=== PATIENT | male | born 1960 | race Caucasian/White ===

== ENCOUNTER 2017-05-16 13:04 | Inpatient (IN) ==
--- NOTE | 2017-05-16 14:24 | Diag Imaging Result Doc PS360 ---
EXAM: CHEST-2 VIEWS INDICATION: Fever TECHNIQUE: 2 views COMPARISON: None. FINDINGS: There is mild subsegmental atelectasis at the right lung base. The lungs are grossly clear, otherwise. There is no discrete pleural fluid collection or pneumothorax. The cardiomediastinal silhouette and central vasculature are grossly unremarkable. IMPRESSION: Mild right basilar subsegmental atelectasis. Grossly unremarkable, otherwise. Electronically signed by Lasha Valdez 05/16/2017 2:22 PM
[2017-05-16] MEDS ORDERED: TYLENOL PO ONE (15:02)
[2017-05-16 15:18] LABS: URINE CULTURE NEEDED? NO; URINE MICRO REVIEW NEEDED? NO; URINE SOURCE CLEAN CATCH
[2017-05-16 15:24] LABS: BASO% 0.1 % (0.0-0.8); EOS# 0.03 X1000 (0.0-0.7); EOS% 0.2 % (0.0-10.0); HEMATOCRIT 44.5 % (42.0-52.0); HEMOGLOBIN 16.1 g/dL (14.0-18.0); IMM GRAN# 0.03 X1000 (0.0-0.04); IMM GRAN% 0.2 % (0.0-0.5); LYMPH# 0.47 X1000 (1.2-3.4); LYMPH% 3.6 % (20.5-51.1); MANUAL DIFF NEEDED? YES; MCH 30.7 PG (27-31); MCHC 36.2 g/dL (33-37); MCV 84.8 FL (81-99); MONO# 0.67 X1000 (0.11-0.59); MONO% 5.1 % (1.7-9.3); MPV 10.9 FL (7.4-10.4); NEUT% 90.8 % (42.2-75.2); PLT 184 X1000 (130-400); RBC 5.25 XMIL (4.7-6.1)
[2017-05-16 15:26] LABS: BILIRUBIN URINE SMALL (NEGATIVE); BLOOD URINE TRACE (NEGATIVE); COLOR YELLOW; GLUCOSE URINE NEGATIVE (NEGATIVE); LEUKOCYTES URINE NEGATIVE (NEGATIVE); NITRITE URINE NEGATIVE (NEGATIVE); PROTEIN URINE 50 mg/dL (NEGATIVE); SP GRAVITY URINE 1.032; TURBIDITY URINE CLEAR (CLEAR); UROBILINOGEN URINE 2 mg/dL (NORMAL)
[2017-05-16 15:28] LABS: UR EPITHELIAL CELLS <10 /HPF (<10); URINE BACTERIA NEGATIVE /HPF; URINE RBC <10 /HPF (<10); URINE WBC <10 /HPF (<10)
[2017-05-16 15:31] LABS: INR 1.06; PROTIME 11.2 Seconds (9.2-11.7); PTT 28.9 Seconds (22.0-36.0)
[2017-05-16 15:37] LABS: AGAP 13; ALBUMIN 4.1 g/dL (3.5-5.0); ALKALINE PHOSPHATASE 83 U/L (32-122); BUN 18 mg/dL (8-22); CALCIUM 9.3 mg/dL (8.8-10.2); CHLORIDE 96 mmol/L (98-107); CK PROFILE 116 U/L (24-204); COSMO 276; GOT 17 U/L (10-34); GPT 17 U/L (10-44); POTASSIUM 3.6 mmol/L (3.5-5.1); SODIUM 137 mmol/L (136-145); TCO2 28 mmol/L (25-35); TOTAL PROTEIN 7.3 g/dL (6.3-8.3)
[2017-05-16 16:26] LABS: BANDS 1 % (0-1); LYMPHS 5 % (21-51); MONO 2 % (1-9)
[2017-05-16] MEDS ORDERED: NS 1,000 ML IV ONE (16:57)
--- NOTE | 2017-05-16 18:00 | PROVIDER DOCUMENTATION ---
This chart was entered by Robb Alegria Scribe, acting as scribe for Yenni Harrell CRNP. HPI-Abdominal Pain/GI Problem - General Source: patient - History of Present Illness-ABD Nature of Presenting Problems: Patient is a 56 y/o M that presents with lower abdominal pain x 4 days with fever/chills, n/v. Denies dysuria, diarrhea, or cough. reports having some constipation. Abdominal Pain Onset Location: reports: RLQ, LLQ, suprapubic Pain Radiation: reports: no radiation Quality of Pain: reports: aching, cramping Severity in ED: reports: moderate Onset/Duration: reports: abrupt, 4 days ago Timing: reports: still present, constant Activities at Onset: reports: none Modifying Factors: improves with: nothing Associated Symptoms: reports: constipation, fever/chills, nausea, vomiting. denies: back/neck pain, chest pain, cough, diarrhea, shortness of breath Similar Symptoms Previously?: No Recently seen or treated by another doctor?: No <Yenni Harrell - Last Filed: 05/16/17 18:00> <Lasha Granados - Last Filed: 05/16/17 19:47> - General Chief Complaint: Abdominal Pain Stated Complaint: ABD PAIN/FEVER Time Seen by Provider: 05/16/17 14:02 Allergies/Adverse Reactions: Patient Allergies Allergy/AdvReac Type Severity Reaction Status Date / Time No Known Allergies Allergy Verified 05/16/17 17:43 Home Medications: Home Medication List Medication Instructions Recorded Confirmed Last Taken Type Esomeprazole Magnesium [Nexium] 20 mg PO DAILY 05/16/17 05/16/17 05/11/17 09:00 History Review of Systems - Adult - REVIEW OF SYSTEMS - ADULT Constitutional: reports: chills, fever Eyes: reports: no symptoms reported Ears, Nose, Mouth & Throat: denies: ear discharge, ear pain, sinus problem, throat pain Cardiovascular: denies: chest pain, orthopnea, palpitations Respiratory: denies: cough, shortness of breath, wheezing Gastrointestinal: reports: abdominal pain, constipation, nausea, vomiting. denies: diarrhea, rectal bleeding Genitourinary: denies: dysuria, frequency, hematuria, urgency Musculoskeletal: reports: no symptoms reported Integumentary: reports: no symptoms reported Neurological: reports: no symptoms reported Psychiatric: reports: no symptoms reported Endocrine: reports: no symptoms reported Hematologic/Lymphatic: reports: no symptoms reported Allergic/Immunologic: reports: no symptoms reported All Other Systems: Reviewed and Negative <Yenni Harrell - Last Filed: 05/16/17 18:00> - REVIEW OF SYSTEMS - ADULT Constitutional: reports: chills, fever <Lasha Granados - Last Filed: 05/16/17 19:47> Past History - Adult - PAST MEDICAL HISTORY-ADULT Review of Records: reports: Old Records Reviewed, Nursing Assessment Review, Medications Reviewed <Yenni Harrell - Last Filed: 05/16/17 18:00> - PAST MEDICAL HISTORY-ADULT Review of Records: reports: Old Records Reviewed <Lasha Granados - Last Filed: 05/16/17 19:47> Physical Exam-General - PHYSICAL EXAM-ADULT Initial Vital Signs Reviewed: Yes - CONSTITUTIONAL General Appearance: alert, mild distress - EYES Eyes: PERRL/EOMI, pink conjunctivae - HEAD, EARS, NOSE, MOUTH & THROAT HENMT: normocephalic/atraumatic, moist mucous membranes, normal ENT inspection - NECK Neck: full range of motion, normal inspection - RESPIRATORY Respiratory: lungs clear, normal breath sounds, no respiratory distress, no accessory muscle use - CARDIOVASCULAR Cardiovascular: no gallop, no murmur, tachycardia - GASTROINTESTINAL (ABDOMEN) Abdominal Exam: soft, no organomegaly, no pulsatile mass, abnormal bowel sounds (decreased on right, absent on left), tenderness (LLQ). negative: hepatomegaly , spleenomegaly - MUSCULOSKELETAL Back Exam: no CVA tenderness, no vertebral tenderness Extremity: normal range of motion, normal inspection, no pedal edema - SKIN Integumentary: normal color, warm/dry - NEUROLOGIC Neurologic: abe teacher II-XII nml as tested, no motor/sensory deficits - PSYCHIATRIC Psych/Mental Status: normal mood/affect, normal thought content, normal thought process, oriented x 3 <Yenni Harrell - Last Filed: 05/16/17 18:00> - CONSTITUTIONAL General Appearance: alert, mild distress <Lasha Granados - Last Filed: 05/16/17 19:47> Progress - PLAN OF CARE/RESULTS Progress/Plan/Lab Results: Vital Signs - 8 hr 05/16/17 13:23 Temperature 102.8 F H Pulse Rate 120 H Respiratory Rate 20 Blood Pressure 156/103 O2 Sat by Pulse Oximetry 99 Orders Category Date Time Status Cardiac Monitoring DIRECTED Care 05/16/17 14:03 Active IV Insertion ORDERED Care 05/16/17 14:03 Active Notify MD of + Sepsis Screen NOW Care 05/16/17 14:03 Active CHEST-2 VIEWS [RAD] Stat Exams 05/16/17 14:03 Completed BLOOD CULTURE [BLDCUL] Stat Lab 05/16/17 14:03 Uncollected CBC WITH DIFF [HEME] Stat Lab 05/16/17 14:03 Uncollected CK PROFILE [SP CHEM] Stat Lab 05/16/17 14:03 Uncollected COMPREHENSIVE METABOLIC PANEL [CHEM] Stat Lab 05/16/17 14:03 Uncollected LACTATE, PLASMA [CHEM] Stat Lab 05/16/17 14:03 Uncollected PROTIME WITH INR [COAG] Stat Lab 05/16/17 14:03 Uncollected PTT [COAG] Stat Lab 05/16/17 14:03 Uncollected TROPONIN T Stat Lab 05/16/17 14:03 Uncollected URINALYSIS W/POSS RFLX CULT-1 [URINALYSIS] Stat Lab 05/16/17 14:02 Uncollected Oxygen Device Stat Oth 05/16/17 14:03 Active Result Diagrams: 05/16/17 15:08 05/16/17 15:08 - CHANGE OF SHIFT REPORT (ED Provider) Report Given and Care Transferred to:: Lasha Granados PA-C Time of Transfer: 18:00 Items Pending: CT/MRI Results <Yenni Harrell - Last Filed: 05/16/17 18:00> - PLAN OF CARE/RESULTS Progress/Plan/Lab Results: Vital Signs - 8 hr 05/16/17 13:23 05/16/17 15:19 05/16/17 17:44 Temperature 102.8 F H 100.1 F H 99.6 F Pulse Rate 120 H 119 H 112 H Respiratory Rate 20 20 30 H Blood Pressure 156/103 125/87 135/88 O2 Sat by Pulse Oximetry 99 96 97 05/16/17 18:42 Temperature Pulse Rate 108 H Respiratory Rate 24 Blood Pressure 141/97 O2 Sat by Pulse Oximetry 99 Laboratory Results - last 24 hr 05/16/17 05/16/17 05/16/17 15:05 15:08 15:08 WBC 13.15 H RBC 5.25 Hgb 16.1 Hct 44.5 MCV 84.8 MCH 30.7 MCHC 36.2 RDW Std Deviation 12.8 Plt Count 184 MPV 10.9 H Immature Gran % (Auto) 0.2 Neut % (Auto) 90.8 H Lymph % (Auto) 3.6 L [place] % (Auto) 5.1 Eos % (Auto) 0.2 Baso % (Auto) 0.1 Immature Gran # (Auto) 0.03 Neut # (Auto) 11.94 H Lymph # (Auto) 0.47 L [place] # (Auto) 0.67 H Eos # (Auto) 0.03 Baso # (Auto) 0.01 Segmented Neutrophils 92 H Band Neutrophils 1 Lymphocytes 5 L Monocytes 2 PT INR PTT (Actin FS) Sodium 137 Potassium 3.6 Chloride 96 L Carbon Dioxide 28 Anion Gap 13 BUN 18 Creatinine 1.2 Estimated GFR/1.73 m2 > 60 BUN/Creatinine Ratio 15 Glucose 101 Calculated Osmolality 276 Calcium 9.3 Total Bilirubin 2.00 H AST 17 ALT 17 Alkaline Phosphatase 83 Creatine Kinase 116 Troponin T Total Protein 7.3 Albumin 4.1 Globulin 3.2 Albumin/Globulin Ratio 1.3 Plasma Lactate Urine Source CLEAN CATCH Urine Color YELLOW Urine Turbidity CLEAR Urine pH 6.0 Ur Specific [place] 1.032 Urine Protein 50 A Ur Glucose (Stick) NEGATIVE Ur Ketones (Stick) 10 A Urine Blood TRACE A Urine Nitrite NEGATIVE Urine Bilirubin SMALL A Urobilinogen Dipstick 2 A Urine Leukocytes NEGATIVE Urine WBC (Auto) <10 Urine RBC (Auto) <10 U Epithel Cells (Auto) <10 Urine Bacteria (Auto) NEGATIVE 05/16/17 05/16/17 05/16/17 15:08 15:08 15:08 WBC RBC Hgb Hct MCV MCH MCHC RDW Std Deviation Plt Count MPV Immature Gran % (Auto) Neut % (Auto) Lymph % (Auto) [place] % (Auto) Eos % (Auto) Baso % (Auto) Immature Gran # (Auto) Neut # (Auto) Lymph # (Auto) [place] # (Auto) Eos # (Auto) Baso # (Auto) Segmented Neutrophils Band Neutrophils Lymphocytes Monocytes PT 11.2 INR 1.06 PTT (Actin FS) 28.9 Sodium Potassium Chloride Carbon Dioxide Anion Gap BUN Creatinine Estimated GFR/1.73 m2 BUN/Creatinine Ratio Glucose Calculated Osmolality Calcium Total Bilirubin AST ALT Alkaline Phosphatase Creatine Kinase Troponin T < 0.010 Total Protein Albumin Globulin Albumin/Globulin Ratio Plasma Lactate 1.3 Urine Source Urine Color Urine Turbidity Urine pH Ur Specific [place] Urine Protein Ur Glucose (Stick) Ur Ketones (Stick) Urine Blood Urine Nitrite Urine Bilirubin Urobilinogen Dipstick Urine Leukocytes Urine WBC (Auto) Urine RBC (Auto) U Epithel Cells (Auto) Urine Bacteria (Auto) Orders Category Date Time Status Cardiac Monitoring DIRECTED Care 05/16/17 14:03 Active IV Insertion ORDERED Care 05/16/17 14:03 Completed Notify MD of + Sepsis Screen NOW Care 05/16/17 14:03 Active CHEST-2 VIEWS [RAD] Stat Exams 05/16/17 14:[address] ABD/PELVIS W/ IV CONT ONLY [CT] Stat Exams 05/16/17 15:44 Completed BLOOD CULTURE [BLDCUL] Stat Lab 05/16/17 16:40 Results CBC WITH DIFF [HEME] Stat Lab 05/16/17 15:08 Completed CK PROFILE [SP CHEM] Stat Lab 05/16/17 15:08 Completed COMPREHENSIVE METABOLIC PANEL [CHEM] Stat Lab 05/16/17 15:08 Completed LACTATE, PLASMA [CHEM] Stat Lab 05/16/17 15:08 Completed PROTIME WITH INR [COAG] Stat Lab 05/16/17 15:08 Completed PTT [COAG] Stat Lab 05/16/17 15:08 Completed TROPONIN T Stat Lab 05/16/17 15:08 Completed URINALYSIS W/POSS RFLX CULT-1 [URINALYSIS] Stat Lab 05/16/17 15:05 Completed 0.9% Sodium Chloride Inj [Ns] 1,000 ml Med 05/16/17 16:57 Discontinued IV 999 mls/hr Acetaminophen [Tylenol] Med 05/16/17 15:02 Discontinued 1,000 mg PO NOW ONE Oxygen Device Stat Oth 05/16/17 14:03 Completed Result Diagrams: 05/16/17 15:08 05/16/17 15:08 - CT/MRI 1 CT Study: Abdomen, Pelvis Impression: Abnormal (acute cholecystitis - radiology) - CONSULTS/PCP/HOSPITALIST Notification #1 *Consult/PCP/Hospitalist*: Dr. Rogers (General Surgery) Time Discussed: 19:36 Reason/Comments: Will see pt in the ER. Please consult hospitalist. #2 Consult: Dr. Simmons (Hospitalist) Time Discussed: 19:47 Reason/Comments: Will admit the pt. BID MANAGER will see pt in the ER and write orders. <Lasha Granados - Last Filed: 05/16/17 19:47> Departure <Yenni Harrell - Last Filed: 05/16/17 18:00> - Departure Date of Disposition Decision: 05/16/17 Time of Disposition Decision: 19:26 Certified Medical Emergency: Emergent - Critical Care Note This patient required my direct & personal management of CC.: No <Lasha Granados - Last Filed: 05/16/17 19:47> - Departure DIAGNOSIS: Acute cholecystitis Disposition: ADMITTED INPATIENT 09 Condition: Stable Referrals and Follow-Ups: None,PCP [Primary Care Provider] - Attestation - Physician/ ANA Attestation Patient care was provided by Advanced Practice Provider:: Yes Advanced Practice Provider:: Yenni Harrell Advanced Practice Provider documentation review:: The Mid-level provider documentation, treatment plan and medical decision making was reviewed by the physician who agrees with all treatment and medical decision making by the MLP. <Yenni Harrell - Last Filed: 05/16/17 18:00> - Physician/ ANA Attestation The physician spent face to face time with patient:: Yes Advanced Practice Provider documentation review:: Supervising physician onsite and consulted in the evaluation and care of this patient. The physician did have a face to face encounter with the patient. <Lasha Granados - Last Filed: 05/16/17 19:47> This chart was documented by the indicated scribe, (Robb Alegria, Louise) and accurately reflects the services I performed and decisions made by me, Yenni Harrell CRNP, as attested by the provider's signature.
--- NOTE | 2017-05-16 18:29 | Diag Imaging Result Doc PS360 ---
EXAM: CT ABD/PELVIS W/ IV CONT ONLY INDICATION: abd pain TECHNIQUE: Dose reduction protocol was used. COMPARISON: None. FINDINGS: There is a calcified granuloma at the left lung base. There is subsegmental atelectasis versus scarring at the lung bases. There is a large 9 mm calcified stone that is obstructing the cystic duct. The gallbladder is dilated and there is marked gallbladder wall thickening with pericholecystic inflammatory change consistent with acute cholecystitis. There is hepatic steatosis. There are calcified granulomata in the spleen. The adrenal glands and pancreas are unremarkable. The kidneys are unremarkable. The urinary bladder is unremarkable. The appendix is normal. The GI tract is essentially unremarkable, otherwise. IMPRESSION: 1.Calcified gallstone that is obstructing the cystic duct and resulting in acute cholecystitis. 2.Other incidental/nonacute findings detailed above. Electronically signed by Lasha Valdez 05/16/2017 6:27 PM
[2017-05-16] MEDS ORDERED: ZOSYN 3.375 GM in NS 50 ML IV ONE (19:36)
[2017-05-16] MEDS ORDERED: TYLENOL PO PRN (21:15)
[2017-05-16] MEDS ORDERED: DILAUDID IV PRN (21:15)
[2017-05-16] MEDS ORDERED: ZOFRAN IV PRN (21:15)
--- NOTE | 2017-05-16 21:54 | CONSULTATION ---
DATE OF CONSULTATION: 05/16/2017 HISTORY OF PRESENT ILLNESS: This is a 56-year-old male who is not really followed by any physician who says for a week he has had right upper quadrant abdominal pain. This has become quite severe with fevers prompting his admission to the emergency department tonight. Denies any jaundice, but has had some nausea associated these episodes. No real changes in his bowel movements. He says he had a colonoscopy [address] Foss. Unsure of the results. Weight has been stable. He is otherwise in his usual state of health. MEDICAL HISTORY: He has never really seen a doctor, but denies any medical problems. Denies chest pain or shortness of breath with exertion, however. SURGICAL HISTORY: Negative. SOCIAL HISTORY: He uses smokeless tobacco. No alcohol. Works in construction. FAMILY HISTORY: Someone in his family had cancer, but he is unclear what this was. REVIEW OF SYSTEMS: Ten point negative other than what was mentioned in HPI. PHYSICAL EXAMINATION: Vital Signs: Temperature upon arrival to emergency department was 102.8, but he defervesced with a temperature of 98.8 degrees, pulse 111, blood pressure 116/82, oxygen saturation 97% on room air. General: He is alert, in no acute distress. HEENT: There is no scleral icterus or cervical masses. Cardiovascular: Normal rate, regular rhythm. Pulmonary: No increased work of breathing. Abdomen: Soft. Very tender in the right upper quadrant, but no eliot peritonitis. I do not see any hernias or scars on his abdomen. Peripheral vascular: The upper extremities are warm and well perfused. I do not see any lower extremity edema. Musculoskeletal: Normal muscle tone and gross range of motion throughout. Lymphatics: I do not feel any cervical or axillary lymphadenopathy. Psychiatric: Appropriate affect and insight into his current condition. Neurologic: I do not see any focal deficits. LABORATORY/IMAGING: White count 13, hematocrit 44, platelets 184,000. INR is 1.06. Creatinine is 1.2. Bilirubin is elevated at 2. AST, ALT and alkaline phosphatase are normal at 17, 17 and 83. Troponins are normal. Lactate is normal at 1.3. CT scan shows fluid around an edematous, distended gallbladder with a stone in the gallbladder neck consistent with cholelithiasis and cholecystitis. ASSESSMENT AND PLAN: A 56-year-old, white male who presents with acute cholecystitis. Symptoms have been going on for a week. I had a long discussion about the next step. I have recommended admission for IV antibiotics and laparoscopic cholecystectomy with cholangiogram tomorrow. The ER has called a hospitalist. I think this is reasonable given his lack of medical follow-up over the course of his life. He says he has never really seen a doctor since he was a kid. We discussed the risks, benefits, alternatives to surgery, including bleeding, infection, bile leak, damage to the common bile duct or other surrounding structures and the higher than usual likelihood of conversion to open given the dense inflammatory changes seen. I discussed the possibility of leaving a drain and the possibility of having a retained stone, needing ERCP on cholangiogram. He understands all these risks and consents. We will keep him NPO. We will continue him on Zosyn that is being administered currently, and se will plan for laparoscopic cholecystectomy with intraoperative cholangiogram tomorrow. I appreciate the hospitalist service's help with this gentleman in anticipation of an operation tomorrow. We will continue to follow along. cc: Zackary Rogers MD
[2017-05-16] MEDS: NS 1,000 ML IV SCH (22:19)
[2017-05-17] MEDS: ZOSYN 2.25 GM in NS 50 ML IV SCH ×4 (02:26→20:55)
--- NOTE | 2017-05-17 02:35 | HISTORY AND PHYSICAL ---
DATE AND TIME OF HISTORY AND PHYSICAL: 05/16/2017 at 21:00. CHIEF COMPLAINT: Abdominal pain. HISTORY OF PRESENT ILLNESS: Mr. Steven is a 56-year-old male who only has a known past medical history of gastroesophageal reflux disease. Patient at this time does not have a known primary care physician and did report to Dr. Rogers that he has not really ever seen any doctor since he was younger. He states that approximately 1 week ago that he began having abdominal pain. He states that initially it was generalized though did become more localized to his right upper quadrant. The patient states that this pain does radiate to his epigastric area as well. He reports this is a constant pain though does have intermittent periods where it becomes quite severe. He has had intermittent episodes of nausea and vomiting over the past week though he is able to hold some fluids and food down. He also reports that he has had fever and body aches. The patient states that he initially thought that he might be constipated given that he had not had a bowel movement in 3-4 days and took a stool softener and laxative 2 nights ago. He states that since this time he has had 2 loose bowel movements with the last one being this morning but he denies any hematochezia or melena. He also denies any hematemesis. He denies any chest pain, shortness of breath, dysuria, urinary frequency or any swelling in extremities. Upon evaluation in the ER, the patient was found to have mild leukocytosis and had initial vitals of temperature of 102.8 degrees with a heart rate of 120, respirations 20, blood pressure 156/103, and oxygen saturation 99%. Given his symptoms as well as leukocytosis and fever , a CT abdomen and pelvis was performed with IV contrast only which did show a calcified gallstone that is obstructing the cystic duct and resulting in acute cholecystitis. Dr. Rogers with Surgery has been consulted and does plan to take the patient for a laparoscopic cholecystectomy with cholangiogram tomorrow. REVIEW OF SYSTEMS: A 12 point review of systems was conducted with the patient and all were negative except for pertinent positives mentioned in above HPI. PAST MEDICAL HISTORY: Gastroesophageal reflux disease. The patient did report that he has not really ever seen a doctor since he was younger. SURGICAL HISTORY: Patient denies any previous surgery. SOCIAL HISTORY: The patient denies any alcohol or illicit drug use but does report he uses smokeless tobacco. He works in construction. FAMILY HISTORY: His mother has a history of heart disease as well as skin cancer. His father secondary to a hemorrhagic stroke and he did have 1 brother who secondary to lung cancer though was a heavy smoker. ALLERGIES: The patient reports no known allergies. HOME MEDICATIONS: Nexium 20 mg p.o. daily. DIAGNOSTIC DATA/LABORATORY RESULTS: White blood cell count 13.1, hemoglobin 16.1, hematocrit 44.5, platelet count 184,000. PT 11.2, INR 1.06, PTT is 28.9. Sodium 137, potassium 3.6, chloride 99, bicarb 28, BUN 18, creatinine 1.2, glucose 101, calcium 9.3, total bilirubin 2, AST 17, ALT 17, alkaline phosphatase is 83. CK 116, troponin is less than 0.01, plasma lactate is 1.3. Urinalysis obtained via clean catch was positive for protein, ketones, trace blood and small bilirubin. It was negative for nitrites, leukocytes, white blood cells, or bacteria. CT of the abdomen and pelvis with IV contrast only showed calcified gallstone that is obstructing the cystic duct and resulting in acute cholecystitis. There is hepatic steatosis noted as well. There is also a calcified granuloma in the spleen and there was some subsegmental atelectasis versus scarring in the lung bases noted. Chest x-ray showed mild right basilar subsegmental atelectasis. This is per Radiology. PHYSICAL EXAMINATION: VITAL SIGNS: Temperature 99.6 degrees, heart rate 109, respirations 18, blood pressure 132/85, oxygen saturation is 100% room air. GENERAL: Mr. Steven is a pleasant 56-year-old male who is resting comfortably in the inpatient bed. He was in no acute distress. He was awake, alert and able to answer all questions appropriately. HEENT: Head is atraumatic, normocephalic. Pupils are equal, round, reactive to light, are 3 mm bilaterally and brisk. Sclerae white. No lesions noted. Subconjunctivae were pink. Oral mucosa is moist. Oropharynx is clear. NECK: Supple. Trachea midline. No carotid bruits noted upon auscultation bilaterally. CARDIOVASCULAR: Patient has normal S1, S2. No murmurs, gallops, rubs appreciated with a regular rate and rhythm. PULMONARY: Patient has symmetrical chest expansion bilaterally. Lung sounds are clear to auscultation in bilateral full persaud. ABDOMEN: Soft, nondistended though the patient did report tenderness in the right upper quadrant and epigastric area. He did have a positive Higuera's sign noted. Bowel sounds were present in all 4 quadrants, were normoactive. No CVA tenderness noted upon palpation. EXTREMITIES: No cyanosis, clubbing, or edema noted. Pulse, motor and sensory were intact in all extremities as well. Pedal pulses were 3+ bilaterally. INTEGUMENTARY: The patient's skin color is pink, warm, dry, and intact. No lesions or sores noted. NEUROLOGICAL: Patient is alert and oriented x4. Cranial nerves 2-12 are grossly intact. ASSESSMENT AND PLAN: 1. Acute cholecystitis. The patient's CT did show a calcified gallstone that is obstructing the cystic duct and resulting in acute cholecystitis. The patient does have some leukocytosis and fever noted. He has been placed on Zosyn 3.375 g IV q.[address] Rogers with Surgery has been consulted and he does plan to take the patient for a laparoscopic cholecystectomy with cholangiogram tomorrow. He will remain NPO at this time and we will continue to follow and await Dr. Rogers's further evaluation and recommendations for management. 2. Leukocytosis. We will continue with treatment as mentioned for #1. 3. Nausea and vomiting. We will provide Zofran as needed. 4. Gastroesophageal reflux disease. We will placed the patient on Protonix IV q.24 hours. 5. DVT prophylaxis was provided with SCDs. The patient has been placed on the medical floor with telemetry. He will have vital signs q.6 hours. We will do strict intake and output. He will be NPO. We have placed an order for an EKG as well as repeat CBC and CMP in the morning. Also, blood cultures have been placed and we are awaiting those results at this time as well. We will provide IV fluid hydration with normal saline at 100 mL/h. Further orders and recommendations pending hospital course , diagnostic studies, and physician evaluation. Dictated by MICAELA Baer for Da Simmons MD cc: Da Simmons MD [facility] HOSPITALChava
[2017-05-17 06:23] LABS: MANUAL DIFF NEEDED? NO
[2017-05-17 06:38] LABS: BASO% 0.2 % (0.0-0.8); EOS# 0.02 X1000 (0.0-0.7); EOS% 0.2 % (0.0-10.0); HEMATOCRIT 39.8 % (42.0-52.0); HEMOGLOBIN 14.3 g/dL (14.0-18.0); IMM GRAN# 0.03 X1000 (0.0-0.04); IMM GRAN% 0.3 % (0.0-0.5); LYMPH# 1.17 X1000 (1.2-3.4); LYMPH% 10.1 % (20.5-51.1); MCH 30.8 PG (27-31); MCHC 35.9 g/dL (33-37); MCV 85.8 FL (81-99); MONO# 1.36 X1000 (0.11-0.59); MONO% 11.8 % (1.7-9.3); MPV 11.7 FL (7.4-10.4); NEUT% 77.4 % (42.2-75.2); PLT 166 X1000 (130-400); RBC 4.64 XMIL (4.7-6.1)
[2017-05-17] MEDS: SODIUM CHLORIDE 0.9% INJ SCH (06:39)
[2017-05-17] MEDS: PROTONIX IV SCH (06:39)
[2017-05-17 06:56] LABS: AGAP 14; ALBUMIN 3.4 g/dL (3.5-5.0); ALKALINE PHOSPHATASE 78 U/L (32-122); BUN 16 mg/dL (8-22); CALCIUM 8.3 mg/dL (8.8-10.2); CHLORIDE 99 mmol/L (98-107); COSMO 276; GOT 15 U/L (10-34); GPT 15 U/L (10-44); POTASSIUM 3.6 mmol/L (3.5-5.1); SODIUM 138 mmol/L (136-145); TCO2 25 mmol/L (25-35); TOTAL BILIRUBIN 1.66 mg/dL (0.20-1.00); TOTAL PROTEIN 6.5 g/dL (6.3-8.3)
--- NOTE | 2017-05-17 07:29 | EKG Report ---
Test Performed on : 05/17/2017 07:02:05 AM Test Reason : Acute Cholecystitis, Surgical Patient Blood Pressure : / mmHG Vent. Rate : 098 BPM Atrial Rate : 098 BPM P-R Int : 140 ms QRS Dur : 084 ms QT Int : 346 ms P-R-T Axes : 047 017 024 degrees QTc Int : 441 ms Normal sinus rhythm. RSR' or QR pattern in V1 suggests right ventricular conduction delay Nonspecific ST and T wave abnormality inferior lead III Normal ECG No previous ECGs available Confirmed by Ignacio Gamboa DO ([id number]) on 05/17/2017 5:00:27 PM
[2017-05-17] MEDS ORDERED: ZOSYN ONE (07:53)
[2017-05-17] MEDS: NS 1,000 ML IV SCH (08:02)
[2017-05-17] MEDS ORDERED: DIPRIVAN 1% ONE (12:04)
[2017-05-17] MEDS ORDERED: VERSED ONE (12:04)
[2017-05-17] MEDS ORDERED: FENTANYL ONE (12:04)
[2017-05-17] MEDS ORDERED: SENSORCAINE 0.5%-EPI 1:200,000 ONE (12:10)
[2017-05-17] MEDS ORDERED: LR 1,000 ML ONE (12:11)
[2017-05-17] MEDS ORDERED: SODIUM CHLORIDE 0.9% ONE (12:11)
[2017-05-17] MEDS ORDERED: NORCURON ONE (12:30)
[2017-05-17] MEDS ORDERED: SODIUM CHLORIDE 0.9% 10 ML ONE (12:30)
--- NOTE | 2017-05-17 12:39 | PROGRESS NOTE ---
DATE: 05/17/2017 SUBJECTIVE: Continues to have pain but feels a little better this morning. No nausea, vomiting. OBJECTIVE: Vital signs: Fevers have not resolved. Temp is 99.0 degrees, pulse has been in 90s to low 100s, oxygen saturation 94% on room air, blood pressure 141/81. General: He is alert, no acute distress. Abdomen: Soft. Tender in the right lower quadrant. Skin: Warm and dry without jaundice. LABS: White count is down to 11, hematocrit 39. Creatinine is 1.0. Bilirubin is down to 1.66. AST, ALT, and alkaline phosphatase are normal. ASSESSMENT AND PLAN: This is a 56-year-old male with severe cholecystitis secondary to cholelithiasis. We discussed risks of bleeding, infection, bile leak, injury to surrounding structures, i.e. common bile duct, and he consents to a laparoscopic cholecystectomy with cholangiogram. We will proceed with that today. Disposition pending findings at time surgery. We did discuss the possibility of conversion to open, possibility of leaving a drain, and he consents. cc: Zackary Rogers MD
[2017-05-17] MEDS ORDERED: XYLOCAINE-MPF 2% ONE (12:43)
[2017-05-17] MEDS ORDERED: QUELICIN (DOSE) ONE (12:44)
[2017-05-17] MEDS ORDERED: XYLOCAINE 1% ONE (12:48)
[2017-05-17] MEDS ORDERED: LABETALOL ONE (12:48)
[2017-05-17] MEDS ORDERED: GLUCAGON ONE (13:04)
[2017-05-17] MEDS ORDERED: ROBINUL ONE (13:06)
[2017-05-17] MEDS ORDERED: NEOSTIGMINE ONE (13:06)
[2017-05-17] MEDS ORDERED: ZOFRAN ONE (13:20)
[2017-05-17] MEDS ORDERED: DILAUDID ONE (13:30)
[2017-05-17] MEDS ORDERED: OFIRMEV 1000 MG/ISOTONIC SOLN 1,000 MG/100 ML BOTTLE ONE (13:46)
--- NOTE | 2017-05-17 14:09 | Diag Imaging Result Doc PS360 ---
OPERATIVE CHOLANGIOGRAM - 05/17/2017 INDICATION: GALLBLADDER DZ TECHNIQUE: The exam was performed by the patient's surgeon. Two images were submitted. COMPARISON: None FINDINGS: Contrast was infused into the cystic duct. This outlines normal intra and extrahepatic biliary collecting ducts. There is good passage of contrast into the duodenum. No filling defect or stricture. IMPRESSION: Negative exam. Electronically signed by Ata Anderson 05/17/2017 2:07 PM
--- NOTE | 2017-05-17 14:16 | PROGRESS NOTE ---
DATE: 05/17/2017 SUBJECTIVE: Today Mr. Steven referred to be doing a little better. Still continued to have some abdominal discomfort. He was waiting for surgery. OBJECTIVE: Vital signs: Blood pressure was 141/81, pulse of 101, respirations 18, temperature 99.0 degrees. General Examination: Mr. Steven is a 56-year-old, well-built male. He was in bed. Not seemingly distressed. HEENT: Mucosa is pink and moist. Anicteric. Acyanotic. Neck: Supple. Chest: Clear. Cardiovascular: Regular rate and rhythm. Abdomen: Soft. Is mildly tender in the right upper quadrant. Bowel sounds were present. LEAD PROJECT ENGINEER: Patient is awake and alert and oriented x4. There is no focal neurological deficit. LABORATORY DATA: WBC is 11.56, hemoglobin is 14.3, platelet count 166,000. Chemistries reviewed and are completely unremarkable, except for total bilirubin of 1.66. Patient had a CT scan of the abdomen which shows calcified gallstone that is obstructing the cystic duct and resulting in acute cholecystitis. ASSESSMENT: 1. Sepsis secondary to acute cholecystitis. Gallstone induced cystic duct obstruction. 2. Leukocytosis secondary to acute cholecystitis. 3. Acute cholecystitis. The patient is currently on IV antibiotics and is pending for surgery. cc: Sahil Gonzales MD
[2017-05-17] MEDS: DILAUDID IV PRN ×2 (17:00→18:04)
--- NOTE | 2017-05-17 17:49 | OPERATIVE NOTE ---
PROCEDURE DATE: 05/17/2017 PREOPERATIVE DIAGNOSIS: Acute cholecystitis. POSTOPERATIVE DIAGNOSIS: Acute cholecystitis. PROCEDURES PERFORMED: Laparoscopic cholecystectomy with cholangiogram. FARMWORKER MACHINE: Dr. Morris. ANESTHESIA: General. INDICATION: 56-year-old male with a week of right upper quadrant abdominal pain. He presented with fever, tachycardia and CT scan showing acute cholecystitis. OPERATIVE FINDINGS: There is a densely inflamed hemorrhagic and gangrenous gallbladder with hydrops and purulent bile, dense omental and duodenal adhesions. INTERPRETATION OF INTRAOPERATIVE CHOLANGIOGRAM: There was a moderate length cystic duct with rapid flow contrast into a nondilated common bile duct. Initially there is no flow in the duodenum but after waiting for a couple minutes, the spasm relieved and the contrast flowed into the duodenum with no filling defects noted. There was retrograde flow in the common hepatic bilateral, 2nd and 3rd degree biliary radicals. Overall normal appearing cholangiogram. OPERATIVE NOTE: Risks, benefits and alternatives discussed with the patient. He consented to the procedure. He was seen preoperatively and surgery to be performed was confirmed. He was taken to the operating room, placed supine position. General anesthesia was induced. Scheduled antibiotics were confirmed. His abdomen is prepped with chlorhexidine solution after hair was removed with clippers, and draped in usual fashion. Time-out was performed. Periumbilical block was made with local anesthetic. A curvilinear infraumbilical incision was made and carried down to the level of the fascia. The fascia was elevated with Dimitry clamp and incision along the midline was made and entered in a controlled fashion. Abdomen was insufflated to 15 mmHg. We inspected the abdomen and made sure there is no injury. There was not. We then placed 3 trocars, 1 in the epigastrium, 1 in the midclavicular line off the costal margin, 1 more laterally after infiltration of the peritoneum. Using a locking grasper, grasped the gallbladder and retracted it cephalad. We did decompress the purulent hydrops bile out of the gallbladder. The gallbladder was very necrotic and falling apart and it required a bulldog clamp to hold the gallbladder cephalad but we were able to bluntly take down the thickened rind, expose the infundibulum of the gallbladder. We dissected out and we were able to establish a critical view with the cystic duct which was actually quite small in caliber, likely related to the impacted stone in the distal neck of the gallbladder. After this point we also identified the small cystic artery and doubly clipped this confirming the critical view prior to doing this. Placed a clip on the gallbladder side. I made a ductotomy. Performed cholangiogram with above findings using a taut cholangiogram catheter. After this, we triply clipped the duct and divided it and removed the gallbladder from the gallbladder fossa. This was quite difficult. There is a thickened rind. We actually entered the gallbladder and removed the anterior wall leaving the posterior wall and then subsequently took off the posterior wall. We did leave a small amount of gallbladder down at the base near the portal structures to prevent injury here. There is more prominent cystic artery that coursed along the medial aspect of the gallbladder that we did have to clip at several locations as we encountered it multiple times. We irrigated the abdomen copiously. The gallbladder fossa was noted be dry. We did have to clip another area of bleeding out to the periphery but ultimately we had hemostasis. Placed a Dixon drain in the gallbladder fossa and secured it with a 2-0 nylon suture bringing it out the lateral port site. Placed Surgicel in the gallbladder fossa. Irrigated the abdomen until clear. Desufflated the abdomen and brought the gallbladder out through the umbilical incision. We did confirm that all the port sites were hemostatic prior to doing this and closed the fascia with interrupted 0 Vicryl sutures. Skin was closed with 4-0 Monocryl in a subcuticular fashion. Dermabond was applied for dressing. Please also add as assistance, Dr. Morris was present for the entirety of the case. He facilitated with retraction, identification of the abnormal anatomy and interpretation of the intraoperative cholangiogram and skin closure. Counts were correct x2. I spoke with the family. cc: Zackary Rogers MD
[2017-05-18] MEDS: DILAUDID IV PRN ×2 (01:37→06:08)
[2017-05-18] MEDS: ZOSYN 2.25 GM in NS 50 ML IV SCH ×2 (02:52→09:35)
[2017-05-18] MEDS: SODIUM CHLORIDE 0.9% INJ SCH (05:00)
[2017-05-18] MEDS: PROTONIX IV SCH (05:00)
[2017-05-18 05:15] LABS: MANUAL DIFF NEEDED? NO
[2017-05-18 05:19] LABS: BASO% 0.2 % (0.0-0.8); EOS# 0.01 X1000 (0.0-0.7); EOS% 0.2 % (0.0-10.0); HEMATOCRIT 35.6 % (42.0-52.0); HEMOGLOBIN 12.6 g/dL (14.0-18.0); LYMPH# 0.84 X1000 (1.2-3.4); LYMPH% 12.8 % (20.5-51.1); MCH 30.5 PG (27-31); MCHC 35.4 g/dL (33-37); MCV 86.2 FL (81-99); MONO# 0.66 X1000 (0.11-0.59); MPV 10.9 FL (7.4-10.4); NEUT% 76.8 % (42.2-75.2); PLT 163 X1000 (130-400); RBC 4.13 XMIL (4.7-6.1)
[2017-05-18 05:44] LABS: AGAP 13; BUN 14 mg/dL (8-22); CHLORIDE 98 mmol/L (98-107); COSMO 274; POTASSIUM 3.7 mmol/L (3.5-5.1); SODIUM 137 mmol/L (136-145); TCO2 26 mmol/L (25-35)
[2017-05-18] MEDS: NORCO-7.5 PO PRN ×2 (12:02→16:42)
[2017-05-18] MEDS ORDERED: NS 1,000 ML IV SCH (13:16)
[2017-05-18] MEDS: TYLENOL PO PRN (13:42)
[2017-05-18] MEDS: LOVENOX SUBQ SCH (13:50)
[2017-05-18] MEDS: ZOSYN 3.375 GM in NS 50 ML IV SCH ×2 (13:59→21:09)
--- NOTE | 2017-05-18 14:30 | PROGRESS NOTE ---
DATE: 05/18/2017 SUBJECTIVE: Had some confusion with his pain medicine overnight remained febrile as well otherwise he is doing as expected. PHYSICAL EXAMINATION: Vital Signs: Temperature overnight was 102.5 but he has defervesced this morning temperature 98.5, pulse been in the 90s to low 100s, oxygen saturations 91% on room air. General: He is alert in no acute distress. Abdomen: Soft, appropriately tender. LAMINE drain serosanguineous. LABS: White count down to 6, hematocrit 35, creatinine is 1.0. ASSESSMENT AND PLAN: 56-year-old male status post laparoscopic cholecystectomy with cholangiogram for suppurative cholecystitis with gangrenous changes gallbladder wall. He remains febrile, white count down trending, I suspect it is related to his gross purulence in his lumen of his gallbladder and given the bacteremia noted on his microbiology culture, would continue on IV Zosyn for now, will keep his drain in place. Be okay to begin advancing his diet and encourage him to get out of bed and ambulate and he will need DVT prophylaxis. Will start that today. cc: Zackary Rogers MD
--- NOTE | 2017-05-18 16:31 | PROGRESS NOTE ---
DATE: 05/18/2017 SUBJECTIVE: This patient is still having fever. His abdominal pain is better, but he still has abdominal pain and some abdominal distention as well. Family members at the bedside. All their questions were answered. OBJECTIVE: Vital Signs: Temperature 99 degrees, pulse 112, respiratory rate 24, blood pressure 146/88, oxygen saturation 95 on room air. HEENT: Head normocephalic. No trauma. PERRLA. Neck: Supple. No JVD. No masses. Central trachea. Chest: Clear to auscultation. No wheezing. No rales. Cardiovascular: RRR. No murmurs. Abdomen: Soft. Mildly distended. Mild tenderness to palpation mostly at the level of the right upper quadrant. Tympanic. He has a drain coming out from his abdomen with serosanguineous material. Positive bowel sounds, but decreased. Extremities: No edema. No clubbing. No cyanosis. Neurological examination: The patient is alert and oriented x3. No focal neurological deficits. LABORATORY: WBC 6.5, hemoglobin 12.6, hematocrit 35.6, platelet 163. Sodium 137, potassium 3.7, chloride 98, bicarbonate 26, BUN 14, creatinine 1, glucose 100, calcium 8. ASSESSMENT AND PLAN: 1. Cholecystitis status post laparoscopic cholecystectomy with cholangiogram for suppurative cholecystitis with gangrenous changes of the gallbladder wall. I will continue with antibiotics. This patient remains febrile. He is bacteremic. We have a blood culture that showed Escherichia coli, 1/2 that showed Escherichia coli that is sensitive to Zosyn. 2. Leukocytosis, resolved. We will continue with the antibiotics. 3. Bacteremia secondary to Escherichia coli. Continue with Zosyn. 4. Gastroesophageal reflux disease. Continue with pantoprazole intravenous. Hopefully tomorrow I will switch it to oral. 5. Deep vein thrombosis prophylaxis with Lovenox. cc: George Benjamin MD
[2017-05-19] MEDS: ZOSYN 3.375 GM in NS 50 ML IV SCH ×4 (01:14→20:37)
[2017-05-19] MEDS: NORCO-7.5 PO PRN ×3 (01:15→10:14)
[2017-05-19] MEDS: PROTONIX IV SCH (04:50)
[2017-05-19 05:47] LABS: MANUAL DIFF NEEDED? NO
[2017-05-19 05:52] LABS: BASO% 0.3 % (0.0-0.8); EOS# 0.06 X1000 (0.0-0.7); EOS% 0.9 % (0.0-10.0); HEMATOCRIT 34.1 % (42.0-52.0); HEMOGLOBIN 12.2 g/dL (14.0-18.0); LYMPH# 0.97 X1000 (1.2-3.4); LYMPH% 14.9 % (20.5-51.1); MCH 30.6 PG (27-31); MCHC 35.8 g/dL (33-37); MCV 85.5 FL (81-99); MONO# 0.86 X1000 (0.11-0.59); MONO% 13.3 % (1.7-9.3); NEUT% 70.6 % (42.2-75.2); PLT 188 X1000 (130-400); RBC 3.99 XMIL (4.7-6.1)
[2017-05-19 06:28] LABS: AGAP 14; ALBUMIN 2.7 g/dL (3.5-5.0); ALKALINE PHOSPHATASE 74 U/L (32-122); BUN 11 mg/dL (8-22); CALCIUM 7.9 mg/dL (8.8-10.2); CHLORIDE 98 mmol/L (98-107); COSMO 275; GOT 31 U/L (10-34); GPT 28 U/L (10-44); POTASSIUM 3.1 mmol/L (3.5-5.1); SODIUM 138 mmol/L (136-145); TCO2 26 mmol/L (25-35); TOTAL BILIRUBIN 1.17 mg/dL (0.20-1.00); TOTAL PROTEIN 5.6 g/dL (6.3-8.3)
[2017-05-19] MEDS ORDERED: KLOR-CON PO ONE (08:06)
[2017-05-19] MEDS: LOVENOX SUBQ SCH (14:02)
--- NOTE | 2017-05-19 15:33 | PROGRESS NOTE ---
DATE: 05/19/2017 Mr. Steven is now postop day 2 from a laparoscopic cholecystectomy per Dr. Rogers for cued cholecystitis. He has a Dixon drain in the right upper quadrant which is draining serous fluid. His heart rate is 94, blood pressure 154/95, O2 saturation 95%. He is afebrile on IV Zosyn. All his trocar sites are healing well. He has been started on liquids. His white blood cell count is normal. Hematocrit is 34%. Electrolytes are within normal limits. Liver function tests are returning towards normal. Will increase his activity and advance his diet. I will plan to remove his drain prior to discharge. cc: Ebonie Barkley MD
[2017-05-19] MEDS: TYLENOL PO PRN (17:17)
--- NOTE | 2017-05-19 17:42 | PROGRESS NOTE ---
DATE: 05/19/2017 SUBJECTIVE: This patient is not having fever today, his abdominal pain is better, he has been passing a little bit of gas and no bowel movement so far. He is tolerating p.o. Family members at the bedside. All their questions were answered. OBJECTIVE: Vital Signs: Temperature 98.9 degrees, pulse 94, respiratory rate 20, blood pressure 154/95, O2 saturation 95% on room air. HEENT: Head normocephalic. No trauma. PERRLA. Neck: Supple. No JVD. No masses. Central trachea. Chest: Clear to auscultation. No wheezing. No rales. Cardiovascular: RRR. No murmurs. Abdomen: Soft. Mild distended. Mild tenderness to palpation mostly at the level of the periumbilical area and right upper quadrant. He has a drain coming out from his abdomen with serosanguineous material. Positive bowel sounds but decreased. Extremities: No edema. No clubbing. No cyanosis. Neurological: The patient is alert and oriented x3. No focal neurological deficits. LABORATORY: WBC 6.4, hemoglobin 12.2, hematocrit 34.1, platelets 188,000. Sodium 138, potassium 3.1, chloride 98, bicarbonate 24, BUN 11, creatinine 0.8, glucose 90, calcium 7.9, bilirubin 1.7, albumin 2.7. ASSESSMENT AND PLAN: 1. Cholecystitis status post laparoscopic cholecystectomy with cholangiogram for suppurative cholecystitis with gangrenous changes of the gallbladder wall. I will continue with Zosyn. He is not having fever today but I will repeat the blood cultures because this patient has bacteremia. We found a positive blood culture 1 out of 2 that showed Escherichia coli which is sensitive to Zosyn. Hopefully tomorrow I will talk to the Infectious Disease doctor to see if he can go home with IV antibiotics or p.o. antibiotics. 2. Leukocytosis, resolved. Continue with antibiotics. 3. Bacteremia as above. 4. Gastroesophageal reflux disease. This patient has been on pantoprazole IV but now has been stopped. He is not complaining of symptoms related with GERD at this moment. 5. Deep vein thrombosis prophylaxis with Lovenox. cc: George Benjamin MD
[2017-05-20] MEDS: ZOSYN 3.375 GM in NS 50 ML IV SCH ×2 (02:26→07:27)
[2017-05-20] MEDS: NORCO-7.5 PO PRN (04:43)
[2017-05-20 05:51] LABS: MANUAL DIFF NEEDED? NO
[2017-05-20 05:58] LABS: BASO% 0.5 % (0.0-0.8); EOS# 0.07 X1000 (0.0-0.7); EOS% 1.1 % (0.0-10.0); HEMATOCRIT 34.4 % (42.0-52.0); HEMOGLOBIN 12.5 g/dL (14.0-18.0); IMM GRAN# 0.03 X1000 (0.0-0.04); IMM GRAN% 0.5 % (0.0-0.5); LYMPH# 1.04 X1000 (1.2-3.4); MCH 30.4 PG (27-31); MCHC 36.3 g/dL (33-37); MCV 83.7 FL (81-99); MONO# 0.79 X1000 (0.11-0.59); MONO% 12.1 % (1.7-9.3); NEUT% 69.8 % (42.2-75.2); PLT 236 X1000 (130-400); RBC 4.11 XMIL (4.7-6.1)
[2017-05-20 06:19] LABS: AGAP 14; BUN 11 mg/dL (8-22); CALCIUM 8.3 mg/dL (8.8-10.2); CHLORIDE 98 mmol/L (98-107); COSMO 270; POTASSIUM 3.5 mmol/L (3.5-5.1); SODIUM 136 mmol/L (136-145); TCO2 24 mmol/L (25-35)
[2017-05-20] MEDS ORDERED: NORVASC PO SCH ×2 (09:00)
[2017-05-20 11:07] VITALS: BP 131/82
[2017-05-20] MEDS ORDERED: MIRALAX PO ONE (11:18)
[2017-05-20] MEDS: LOVENOX SUBQ SCH (12:30)
--- NOTE | 2017-05-20 17:19 | DISCHARGE SUMMARY ---
ADMISSION DATE: 05/16/2017 DISCHARGE DATE: 05/20/2017 DISCHARGE DIAGNOSES: 1. Cholecystitis status post laparoscopic cholecystectomy with cholangiogram for cholecystitis with gangrenous changes of the gallbladder wall. 2. Leukocytosis, resolved. 3. Bacteremia secondary to Escherichia coli. 4. Gastroesophageal reflux disease. CONSULTATIONS: Surgery Department, Dr. Sue Ying. HOSPITAL COURSE: A 56-year-old, male with a past medical history of GERD, who came to the emergency department with a chief complaint of abdominal pain that initially was generalized and then localized at the level of the right upper quadrant and radiated to his epigastric area as well. He described the pain like constant pain through and does have intermittent periods where it becomes more severe, associated with nausea and vomiting over the past week. He thought at the beginning that he might be constipated and he took a stool softener and laxative 2 nights previous to the admission. In the ER he was found to have leukocytosis, fever, tachycardia and tachypnea. CT scan showed a calcified gallstone that is obstructing the cystic duct and resulting in acute cholecystitis. Dr. Rogers with Surgery was consulted and he did a laparoscopic cholecystectomy with cholangiogram. He found an inflamed hemorrhagic and gangrenous gallbladder with hydrops and purulent bile and dense omental and duodenal adhesions. He was placed on antibiotics. We have a positive blood culture that showed E. coli 1 out of 2 and then it was repeated and it has been negative. He was placed on antibiotics, Zosyn, and he was improving on a daily basis. He was able to walk and he was tolerating p.o. He was passing gas. This is why we decided to discharge this patient with an active follow up by his primary care doctor and by Dr. Rogers in 1 week. Upon discharge, this patient was in a stable medical condition. PHYSICAL EXAMINATION: Vital Signs: Temperature 98.8 degrees, pulse 81, respiratory rate 16, blood pressure 131/82, oxygen saturation 100% on room air. HEENT: Head normocephalic. No trauma. PERRLA. Neck: Supple. No JVD. No masses. Central trachea. Chest: Clear to auscultation. No wheezing. No rales. Abdomen: Soft. Tender to palpation at the level of the operative area and periumbilical area. Positive bowel sounds. No signs of peritoneal irritation. Extremities: No edema. No clubbing. No cyanosis. Neurological: The patient is alert and oriented x 3. No focal neurological deficits. LABORATORY: WBC 6.5, hemoglobin 12.5, hematocrit 34.4, platelets 236,000. Sodium 136, potassium 3.5, chloride 98, bicarbonate 24, BUN 11, creatinine 0.8, glucose 81, calcium 8.3. DISCHARGE MEDICATIONS: 1. Nexium 20 mg p.o. daily. 2. MiraLAX 17 g p.o. b.i.d. 3. Levofloxacin 750 mg p.o. daily for 14 days. 4. [place] 7.5 one tablet p.o. 4-6 hours p.r.n. 5. Amlodipine 5 mg p.o. daily. Time discharging this patient 40 minutes. cc: George Benjamin MD
--- NOTE | 2017-05-20 19:26 | DISCHARGE SUMMARY ---
ADMISSION DATE: 05/16/2017 DISCHARGE DATE: 05/20/2017 ADMITTING DIAGNOSIS: Acute cholecystectomy with cholelithiasis. DISCHARGE DIAGNOSIS: Acute cholecystectomy with cholelithiasis. PRINCIPAL PROCEDURE: 1. Abdominal and pelvic CT scan, 05/16/2017. 2. Laparoscopic cholecystectomy with intraoperative cholangiogram by Dr. Stepan Rogers, 05/17/2017. DISCHARGE DIET: Regular. DISCHARGE DISPOSITION: He will return to our outpatient offices in 7-10 days. DISCHARGE DISABILITY: Full. DISCHARGE MEDICATIONS: He is to return to his home medications. HOSPITAL COURSE: Mr. Thmoas Steven is a 56-year-old white male who presented to our emergency department on 05/16/2017 with abdominal pain. He underwent an abdominal and pelvic CT scan which suggested acute cholecystitis with cholelithiasis. Dr. Stepan Rogers was asked to evaluate the patient. He was admitted to the hospitalist. The following day he underwent a laparoscopic cholecystectomy with intraoperative cholangiogram per Dr. Rogers. A drain was left at the time of surgery. He went to the recovery room and then to the [address] [place] [address]. His drain drained serosanguineous fluid. Over the next 3 days Mr. Steven improved. On the day of discharge I removed his Dixon drain from the right upper quadrant of his abdomen. At the time of discharge his abdomen was soft. He was tolerating a diet. He was able to ambulate well in his room and white. It was felt safe to discharge him home under the care of his family. At discharge he was afebrile and his white blood cell count was normal. His hematocrit was 34%. Heart rate was 81. Blood pressure 131/82. O2 saturation was 100% without work of breathing. Plans are to discharge him home on his home medications with followup in our outpatient offices by Dr. Rogers. He knows to contact us with any increasing abdominal pain, distention, or fever. cc: Ebonie Barkley MD
[2017-05-20] MEDS ORDERED: AUGMENTIN PO SCH (21:00)
[2017-05-20] MEDS ORDERED: MIRALAX PO SCH (21:00)
[2017-05-21] MEDS ORDERED: LEVAQUIN PO SCH ×2 (09:00)
== END 2017-05-20 12:30 | disposition home or self-care (01) ==
LOC: ED 13:04 → 4N 21:00 → SUATTDRO 21:03 → 4N 21:03
PROVIDERS: ATTEND Internal Medicine